=== PATIENT | female | born 1935 | race Caucasian/White ===

== ENCOUNTER 2019-10-27 13:47 | Emergency (ER) | payer OTHER ==
[~2019-10-27] VITALS: Ht 157.5 cm; Wt 68.9 kg
[2019-10-27 14:08] VITALS: Ht 157.5 cm; Wt 68.9 kg
[2019-10-27 16:05] VITALS: BP 152/46
== END 2019-10-27 16:05 | disposition home or self-care (01) ==
LOC: ED 13:47
DX: J18.9 Pneumonia, unspecified organism (principal); J32.9 Chronic sinusitis, unspecified; J98.01 Acute bronchospasm; I10 Essential (primary) hypertension; E11.9 Type 2 diabetes mellitus without complications; Z98.890 Other specified postprocedural states
CPT/HCPCS: 87804; J7512; Q0092

== ENCOUNTER 2019-12-07 14:11 | Observation (INO) | payer OTHER ==
[~2019-12-07] VITALS: Ht 157.5 cm; Wt 65.8 kg
[2019-12-07 15:28] LABS: UA SPECIFIC GRAVITY >=1.030 (1.005-1.035); microscopic required? YES; urine erythrocyte NEGATIVE (NEGATIVE)
[2019-12-07 15:30] LABS: BASOPHIL % 0.2 % (0-2); PLATELET COUNT 326 x10^3mcL (130-400)
[2019-12-07 15:38] LABS: AMPHETAMINE QUAL UR NONE DETECTED (See below)
[2019-12-07 15:43] LABS: CARBON DIOXIDE 28.6 mmol/L (21-32); CHLORIDE SERUM 107 mmol/L (98-107); CREATININE SERUM 1.4 mg/dL (0.6-1.0); GLUCOSE SERUM 111 mg/dL (74-106); POTASSIUM SERUM 4.8 mmol/L (3.5-5.1); SODIUM SERUM 144 mmol/L (136-145)
[2019-12-07 15:52] LABS: ALBUMIN 3.9 g/dL (3.4-5.0); ALKALINE PHOSPHATASE 74 U/L (46-116); ALT/SGPT 22 U/L (14-59); AST/SGOT 13 U/L (15-37); BILIRUBIN TOTAL 0.6 mg/dL (0.20-1.00); LIPASE 92 IU/L (73-393); TOTAL PROTEIN, SERUM 7.7 g/dL (6.4-8.2)
[2019-12-07 17:06] LABS: FREE T4 1.18 ng/dL (0.76-1.46); FREE THYROXINE INDEX 3.2 ug/dL (1.4-4.5); T3 TOTAL 0.97 ng/mL; T4(THYROXINE) 9.2 ug/dL (4.7-13.3)
[2019-12-07 21:32] VITALS: BP 151/53
[2019-12-08 05:24] VITALS: BP 132/51
[2019-12-08 06:35] LABS: CALCIUM 8.2 mg/dL (8.5-10.1); CARBON DIOXIDE 25.2 mmol/L (21-32); CHLORIDE SERUM 108 mmol/L (98-107); CREATININE SERUM 1.4 mg/dL (0.6-1.0); GLUCOSE SERUM 206 mg/dL (74-106); POTASSIUM SERUM 4.2 mmol/L (3.5-5.1); SODIUM SERUM 143 mmol/L (136-145)
[2019-12-08 07:52] VITALS: BP 162/60
[2019-12-08] MEDS ORDERED: COREG25 M1 PO (10:53)
[2019-12-08] MEDS ORDERED: MICARDIS80 MG PO (10:54)
[2019-12-08] MEDS ORDERED: ZYRTEC ALLERGY10 MG PO (10:54)
[2019-12-08] MEDS ORDERED: NOR5 PO (10:55)
[2019-12-08] MEDS ORDERED: ATORVASTATIN CA40 M1 PO (10:55)
[2019-12-08 11:52] VITALS: BP 149/63
[2019-12-08 16:36] VITALS: BP 128/48
[2019-12-09 06:23] VITALS: BP 144/59
[2019-12-09 06:56] LABS: CALCIUM 8.2 mg/dL (8.5-10.1); CARBON DIOXIDE 23.6 mmol/L (21-32); CHLORIDE SERUM 106 mmol/L (98-107); CREATININE SERUM 1.3 mg/dL (0.6-1.0); GLUCOSE SERUM 219 mg/dL (74-106); POTASSIUM SERUM 4.1 mmol/L (3.5-5.1); SODIUM SERUM 140 mmol/L (136-145)
[2019-12-09 07:22] VITALS: BP 143/40
[2019-12-09] MEDS ORDERED: AMB5 PO (09:55)
[2019-12-09] MEDS ORDERED: QUETIAPINE FUMA25 M1 PO (09:55)
[2019-12-09] MEDS ORDERED: LANTUS SOLOS100 U/M1 SQ (10:00)
[2019-12-09] MEDS ORDERED: NOVOLOG FLEX100 U/M1 SQ (10:00)
[2019-12-09 11:23] VITALS: Ht 157.5 cm; Wt 65.8 kg
[2019-12-09 12:19] VITALS: BP 143/40
[2019-12-09 12:35] VITALS: BP 152/52
== END 2019-12-09 13:27 | disposition home or self-care (01) ==
LOC: ED 14:11 → MU 19:48 → DU 19:48 → MU 19:48 → DU 20:41
PROVIDERS: Emergency Medicine; Specialist; ADMIT Internal Medicine Pulmonary Disease
DX: R44.2 Other hallucinations (principal); E11.65 Type 2 diabetes mellitus with hyperglycemia; I12.9 Hypertensive chronic kidney disease with stage 1 through stage 4 chronic kidney disease, or unspecified chronic kidney disease; N18.3 Chronic kidney disease, stage 3 (moderate); E11.22 Type 2 diabetes mellitus with diabetic chronic kidney disease; E78.5 Hyperlipidemia, unspecified; F32.9 Major depressive disorder, single episode, unspecified; M19.90 Unspecified osteoarthritis, unspecified site; N39.0 Urinary tract infection, site not specified
CPT/HCPCS: 82962; 84439; G0378; G0480; J1644; J1815; J1885; J7050

== ENCOUNTER 2020-03-07 18:20 | Emergency (ER) | payer OTHER ==
[~2020-03-07] VITALS: Ht 162.6 cm; Wt 63.5 kg
[~2020-03-07 18:20] MED LIST: AMB5 PO; ATORVASTATIN CA40 M1 PO; COREG25 M1 PO; LANTI SQ; LANTUS SOLOS100 U/M1 SQ; LIPITOR40 MG PO; MICARDIS80 MG PO; NEU300 PO; NOR5 PO; NOVOLIN N100 U/ML SC; NOVOLOG FLEX100 U/M1 SQ; QUETIAPINE FUMA25 M1 PO; ZYRTEC ALLERGY10 MG PO
[2020-03-08 19:44] VITALS: BP 160/72
== END 2020-03-08 19:20 | disposition short-term general hospital (02) ==
LOC: ED 18:20
DX: L02.31 Cutaneous abscess of buttock (principal); E11.9 Type 2 diabetes mellitus without complications; I10 Essential (primary) hypertension; Z20.828 Contact with and (suspected) exposure to other viral communicable diseases
CPT/HCPCS: J2001

== ENCOUNTER 2020-08-10 23:23 | Emergency (ER) | payer OTHER ==
[~2020-08-10] VITALS: Ht 157.5 cm; Wt 68.2 kg
[2020-08-10 23:31] VITALS: Ht 157.5 cm; Wt 68.2 kg
[2020-08-11 01:12] LABS: PLATELET COUNT 267 x10^3mcL (130-400); RED CELL DISTRIBUTION WIDTH 14.1 % (11.5-14.5)
[2020-08-11 01:15] LABS: CALCIUM 8.9 mg/dL (8.5-10.1); CARBON DIOXIDE 25.1 mmol/L (21-32); CHLORIDE SERUM 100 mmol/L (98-107); CREATININE SERUM 1.6 mg/dL (0.6-1.0); GLUCOSE SERUM 344 mg/dL (74-106); POTASSIUM SERUM 4.7 mmol/L (3.5-5.1); SODIUM SERUM 133 mmol/L (136-145)
[2020-08-11 02:19] VITALS: BP 155/51
== END 2020-08-11 02:19 | disposition home or self-care (01) ==
LOC: ED 23:23
PROVIDERS: Emergency Medicine
DX: S39.012A Strain of muscle, fascia and tendon of lower back, initial encounter (principal); E11.65 Type 2 diabetes mellitus with hyperglycemia; I10 Essential (primary) hypertension; M19.90 Unspecified osteoarthritis, unspecified site; X58.XXXA Exposure to other specified factors, initial encounter; Y93.89 Activity, other specified; Y92.89 Other specified places as the place of occurrence of the external cause; Y99.8 Other external cause status
CPT/HCPCS: 82962; J7030